=== PATIENT | female | born 1965 | race Two or more races ===

== ENCOUNTER 2021-07-25 18:40 | Emergency (ER) | payer MEDICAID ==
[~2021-07-25] VITALS: Ht 157.5 cm; Wt 55.0 kg
[2021-07-25 19:38] VITALS: BP 124/67
[2021-07-25] MEDS ORDERED: LEVO100T MT (20:25)
[2021-07-25] MEDS ORDERED: ESCI-7 MT (20:25)
[2021-07-25] MEDS ORDERED: LEVOTHYROXINE SODIUM 100MCG TABLET PO ONE (20:30)
== END 2021-07-25 20:55 | disposition home or self-care (01) ==
LOC: ER 18:40
DX: Z76.0 Encounter for issue of repeat prescription (principal); F32.9 Major depressive disorder, single episode, unspecified; E03.9 Hypothyroidism, unspecified
CPT/HCPCS: 99283